=== PATIENT | female | born 1990 | race Caucasian/White ===

== ENCOUNTER 2016-11-10 09:49 | Emergency (ER) | payer OTHER ==
[2016-11-10 10:47] LABS: BLOOD UREA NITROGEN 13 mg/dL (7-18); CALCIUM 9.6 mg/dL (8.7-10.7); CARBON DIOXIDE 26 mmol/L (21-32); CREATININE 0.5 mg/dL (0.6-1.3); GLUCOSE,RANDOM 81 mg/dL (70-99); POTASSIUM 4.5 mmol/L (3.5-5.1); SODIUM 138 mmol/L (136-145)
== END 2016-11-10 11:30 | disposition home or self-care (01) ==
LOC: ER 09:49
PROVIDERS: General Practice
DX: M79.604 Pain in right leg (principal); F17.210 Nicotine dependence, cigarettes, uncomplicated; Z88.2 Allergy status to sulfonamides
CPT/HCPCS: 36415; 80048; 85379; 93971; 99283-25

== ENCOUNTER 2016-12-31 21:46 | Emergency (ER) | payer OTHER ==
[2016-12-31 22:17] LABS: PH,URINE 6.5 (5.0 - 9.0); URINE BILIRUBIN NEGATIVE (NEGATIVE); URINE BLOOD NEGATIVE (NEGATIVE); URINE GLUCOSE (UA) NORMAL (NORMAL); URINE KETONE NEGATIVE (NEGATIVE); URINE LEUKOCYTE ESTERASE TRACE (NEGATIVE); URINE NITRATE POSITIVE (NEGATIVE); URINE PROTEIN NEGATIVE (NEGATIVE); UROBILINOGEN NORMAL mg/dL (<1.0)
[2016-12-31 22:26] LABS: URINE BACTERIA 2+ (NONE SEEN); URINE RBC 0-5 /[HPF] (0-2); URINE SQUAMOUS EPITHELIAL CELL 0-10 /[HPF] (NONE SEEN)
== END 2016-12-31 22:52 | disposition home or self-care (01) ==
LOC: ER 21:46
PROVIDERS: Internal Medicine
DX: N39.0 Urinary tract infection, site not specified (principal); M54.5 Low back pain; Z87.440 Personal history of urinary (tract) infections; Z98.51 Tubal ligation status; Z88.2 Allergy status to sulfonamides; F17.210 Nicotine dependence, cigarettes, uncomplicated
CPT/HCPCS: 81001; 87086; 87186; 99070; 99283